=== PATIENT | male | born 1970 | race Caucasian/White ===

== ENCOUNTER 2024-08-18 06:16 | Day surgery (SDC) | payer BC, SELFPAY | END 2024-08-18 08:56 | disposition home or self-care (01) | LOC: GI 06:16 | PROVIDERS: ATTENDING PHYSICIAN Surgery | DX: Z12.11 Encounter for screening for malignant neoplasm of colon (principal); Z86.0100 Personal history of colon polyps, unspecified; K63.5 Polyp of colon; K57.30 Diverticulosis of large intestine without perforation or abscess without bleeding | CPT/HCPCS: 45380; 88305 ==